=== PATIENT | male | born 1945 | race Two or more races ===

== ENCOUNTER → 2020-06-16 | Day surgery (SDC) | payer OTHER ==
[2020-06-10 16:23] VITALS: BMI 29.2
[~2020-06-16] MED LIST: LOCK ITEM NR ONE
== END | disposition home or self-care (01) ==
LOC: EDBD → FASU-ENDO 07:06
PROVIDERS: ATTEND Internal Medicine Gastroenterology
PROC: 0DJD8ZZ Inspection of Lower Intestinal Tract, Via Natural or Artificial Opening Endoscopic (ICD-10-PCS; principal; 2020-06-16)
DX: Z53.8 Procedure and treatment not carried out for other reasons (principal); Z12.11 Encounter for screening for malignant neoplasm of colon

== ENCOUNTER 2020-06-17 08:23 | Day surgery (SDC) | payer OTHER ==
[2020-06-17 09:10] VITALS: BMI 29.2
[2020-06-17 10:29] VITALS: TEMP 97.9
[2020-06-17 10:56] VITALS: BP 123/68; PULSE 72
--- NOTE | 2020-06-21 15:24 | PATH ---
Surgical Pathology Report Patient Name: GERTRUDE BARAJAS [facility]. Rec. #: [id number] /Age/Gender: 1945 (Age: 74) / M Account: [id number] Location: [facility] Taken: 06/17/2020 Received: 06/17/2020 Reported: 06/21/2020 Physicians: David San M.D. Specimen(s) Received A: POLYP ,ILEOCECAL VALVE B: POLYP,RECTOSIGMOID COLON C: POLYP,RECTUM Clinical History History of polyps Postoperative diagnosis: Polyps Final Diagnosis A. ILEOCECAL VALVE POLYP, POLYPECTOMY: TUBULAR ADENOMA. B. RECTOSIGMOID COLON POLYP, POLYPECTOMY: TUBULAR ADENOMA. C. RECTUM POLYP, POLYPECTOMY: TUBULAR ADENOMA. Electronically Signed Cortney Berger M.D. Gross Description A. Received in formalin, labeled "polyp ileocecal valve" is a carvajal, irregular portion of soft tissue measuring 0.7 cm. in greatest dimension. The specimen is submitted in toto in one cassette. B. Received in formalin, labeled "polyp rectosigmoid colon" is a carvajal, irregular portion of soft tissue measuring 0.6 cm. in greatest dimension. The specimen is submitted in toto in one cassette. C. Received in formalin, labeled "polyp rectum" is a carvajal, irregular portion of soft tissue measuring 0.4 cm. in greatest dimension. The specimen is submitted in toto in one cassette. DL/06/18/2020 saudi/06/18/2020
== END 2020-06-17 10:56 | disposition home or self-care (01) ==
LOC: FASU-ENDO 08:23
PROVIDERS: ATTEND Internal Medicine Gastroenterology
PROC: 0DBN8ZX Excision of Sigmoid Colon, Via Natural or Artificial Opening Endoscopic, Diagnostic (ICD-10-PCS; 2020-06-17)
PROC: 0DBP8ZX Excision of Rectum, Via Natural or Artificial Opening Endoscopic, Diagnostic (ICD-10-PCS; 2020-06-17)
PROC: 0DBC8ZX Excision of Ileocecal Valve, Via Natural or Artificial Opening Endoscopic, Diagnostic (ICD-10-PCS; principal; 2020-06-17 09:54)
DX: Z09 Encounter for follow-up examination after completed treatment for conditions other than malignant neoplasm (principal); Z86.010 Personal history of colon polyps; D12.0 Benign neoplasm of cecum; D12.7 Benign neoplasm of rectosigmoid junction; D12.8 Benign neoplasm of rectum
CPT/HCPCS: 88305-TC